=== PATIENT | female | born 1955 | race Caucasian/White ===

== ENCOUNTER 2017-11-10 12:13 | Outpatient (CLI) | payer BC | END 2017-11-10 12:14 | disposition home or self-care (01) | LOC: BICRAD 12:13 | PROVIDERS: ATTEND Internal Medicine Rheumatology | DX: M54.2 Cervicalgia (principal); M47.892 Other spondylosis, cervical region | CPT/HCPCS: 72052 ==

== ENCOUNTER 2025-03-19 13:13 | Outpatient (CLI) | payer BC, MEDICARE | END 2025-03-19 13:14 | disposition home or self-care (01) | LOC: SCSRAD 13:13 | PROVIDERS: ATTEND Internal Medicine Rheumatology | DX: M79.671 Pain in right foot (principal); M79.672 Pain in left foot ==